=== PATIENT | female | born 1980 | race American Indian/Alaskan Native ===

== ENCOUNTER 2016-12-01 07:43 | Emergency (ER) | payer OTHER ==
[2016-12-01] MEDS ORDERED: Sodium Chloride 0.9% 1,000 ML IV ONE (08:07)
[2016-12-01 08:22] LABS: RBC URINE 37 /hpf (0-3); URINE BILIRUBIN NEGATIVE (NEGATIVE); URINE BLOOD 3+ (NEGATIVE); URINE COLOR Yellow (YELLOW); URINE GLUCOSE (UA) NORMAL (Normal); URINE KETONE NEGATIVE (NEGATIVE); URINE LEUKOCYTE ESTERASE NEG Leu/uL (Negative); URINE PROTEIN NEGATIVE (NEGATIVE); URINE UROBILINOGEN NORMAL mg/dL (0.2-1.0); WBC URINE 3 /hpf (0-5)
[2016-12-01] MEDS ORDERED: Sodium Chloride 0.9% 1,000 ML ONE (08:23)
[2016-12-01 08:25] LABS: BASO # 0.1 K/uL (0.0-0.2); BASO % 0.9 % (0.0-2.0); EOS # 0.2 K/uL (0.0-0.7); EOS % 1.3 % (0.0-4.0); HEMATOCRIT 37.6 % (34.0-47.0); LYMPH # 3.2 K/uL (1.0-4.3); LYMPH % 23.8 % (20.0-40.0); MEAN CELL VOLUME 91.2 fL (81.0-99.0); MEAN CORPUSCULAR HEMOGLOBIN 30.1 pg (27.0-31.0); MEAN CORPUSCULAR HGB CONC 33.1 g/dL (33.0-37.0); MEAN PLATELET VOLUME 6.7 fL (7.2-11.7); MONO # 1.1 K/uL (0.0-0.8); MONO % 8.3 % (0.0-10.0); NRBC % 0.1 % (0.0-2.0); RED CELL DISTRIBUTION WIDTH 14.4 % (11.5-14.5); WHITE BLOOD COUNT 13.5 K/uL (4.8-10.8)
[2016-12-01 08:34] LABS: CHLORIDE 104 mmol/L (98-107)
[2016-12-01 08:35] LABS: POTASSIUM 3.9 mmol/L (3.6-5.2); SODIUM 140 mmol/L (132-148)
--- NOTE | 2016-12-01 08:35 | C.PDOC ---
History Of Present Illness 35 y/o female presents to the ED c/o intermittent epigastric abdominal pain for 6 days. She notes that a couple of days ago it felt like heart burn so she took OTC medication with no relief. Patient denies nausea, vomiting, diarrhea, urinary symptoms, chest pain, shortness of breath, or fever. Time Seen by Provider: 12/01/16 08:02 Chief Complaint (Nursing): Abdominal Pain History Per: Patient History/Exam Limitations: no limitations Onset/Duration Of Symptoms: Days (6), Intermittent Episodes, Persistent Current Symptoms Are (Timing): Still Present Location Of Pain/Discomfort: Epigastric Radiation Of Pain To:: None Quality Of Discomfort: Dull Recent travel outside of the [place]: No Past Medical History Reviewed: Historical Data, Nursing Documentation, Vital Signs Vital Signs: Last Vital Signs Temp 97.8 F 12/01/16 09:57 Pulse 88 12/01/16 09:57 Resp 16 12/01/16 09:57 BP 122/80 12/01/16 09:57 Pulse Ox 98 12/01/16 09:57 - Medical History PMH: Arthritis Surgical History: No Surg Hx Family History: States: Unknown Family Hx - Social History Hx Tobacco Use: Yes (heavy smoker) Hx Alcohol Use: Yes (social) Hx Substance Use: Yes (marijuana) - Immunization History Hx Tetanus Toxoid Vaccination: No Hx Influenza Vaccination: No Hx Pneumococcal Vaccination: No Review Of Systems Constitutional: Negative for: Fever Cardiovascular: Negative for: Chest Pain Respiratory: Negative for: Shortness of Breath Gastrointestinal: Positive for: Abdominal Pain (epigastric). Negative for: Nausea, Vomiting, Diarrhea Genitourinary: Negative for: Dysuria, Hematuria Physical Exam - Physical Exam Appears: Non-toxic, No Acute Distress Skin: Normal Color, Warm, Dry Head: Atraumatic, Normacephalic Eye(s): bilateral: Normal Inspection Neck: Normal ROM Chest: Symmetrical Cardiovascular: Rhythm Regular Respiratory: Normal Breath Sounds, No Rales, No Rhonchi, No Wheezing Gastrointestinal/Abdominal: Soft, Tenderness (mild epigastric), No Guarding, No Rebound, No Other (Negative Quiles sign, Negative McBurney point tenderness) Back: Normal Inspection, No CVA Tenderness Extremity: Normal ROM, No Swelling Neurological/Psych: Oriented x3, Normal Speech, Normal Cognition ED Course And Treatment - Laboratory Results Result Diagrams: 12/01/16 08:22 12/01/16 08:22 O2 Sat by Pulse Oximetry: 100 (ra) Pulse Ox Interpretation: Normal Medical Decision Making Medical Decision Making: Impression: intermittent epigastric abdominal pain for 6 days. Differential diagnosis includes but not limited to: GERD Plan: * Blood Work * Urinalysis, Urine HCG * Pepcid IVP, IV Fluid On further evaluation patient still complaining of pain. Treated with Toradol IVP. On reevaluation, patient reports improvement of abdominal pain. Patient is resting comfortably, abdomen remains soft, and patient is tolerating PO. Patient feels comfortable going home. Patient discharged home and instructed to follow up with physician/clinic in 2-5 days for further evaluation or return to ED if symptoms persist or worsen. Disposition Counseled Patient/Family Regarding: Diagnosis, Need For Followup, Rx Given - Disposition Disposition: HOME/ ROUTINE Disposition Time: 09:48 Condition: IMPROVED Additional Instructions: Your labs were normal Your prescription sent to [facility] Follow up with your primary medical doctor or clinic in 2-5 days for further evaluation. Return to the emergency department at any time if symptoms persist or worsen. Prescriptions: Omeprazole 20 mg PO DAILY #20 capsule. Instructions: Gastritis (DC) - POA Present On Arrival: None - Clinical Impression Clinical Impression: Epigastric abdominal pain - PA / ZONE MANAGER / Resident Statement MD/DO has reviewed & agrees with the documentation as recorded. - Scribe Statement The provider has reviewed the documentation as recorded by the Scribe (Tamie Aguayo) All medical record entries made by the Scribe were at my direction and personally dictated by me. I have reviewed the chart and agree that the record accurately reflects my personal performance of the history, physical exam, medical decision making, and the department course for this patient. I have also personally directed, reviewed, and agree with the discharge instructions and disposition.
[2016-12-01 08:37] LABS: ALB/GLOB RATIO 1.4 (1.0-2.1); ALKALINE PHOSPHATASE 65 U/L (38-126); ALT/SGPT 27 U/L (9-52); AST/SGOT 38 U/L (14-36); BILIRUBIN,TOTAL 0.2 mg/dL (0.2-1.3); BLOOD UREA NITROGEN 14 mg/dL (7-17); CARBON DIOXIDE 23 mmol/L (22-30); GFR AFRICAN-AMERICAN > 60; GLUCOSE,RANDOM 78 mg/dL (65-105); TOTAL PROTEIN 7.3 g/dL (6.3-8.3)
[2016-12-01 08:38] LABS: CALCIUM 9.5 mg/dl (8.6-10.4)
[2016-12-01 09:57] VITALS: BP 122/80; PULSE 88; RESP 16; TEMP 97.8
[2016-12-01 10:59] VITALS: O2SAT 100
== END 2016-12-01 09:57 | disposition home or self-care (01) ==
LOC: C.ER 07:43
DX: R10.13 Epigastric pain (principal)
CPT/HCPCS: 80053; 81001; 83690; 84703; 85025; 96361; 96374; 96375; 99284; J1885; J7040

== ENCOUNTER 2016-12-03 19:02 | Emergency (ER) | payer OTHER ==
[2016-12-03 19:14] VITALS: BMI 23.9
[2016-12-03] MEDS ORDERED: DiphenhydrAMINE 50 mg/ml Inj ONE (19:31)
[2016-12-03] MEDS ORDERED: DiphenhydrAMINE 50 mg/ml Inj IVP STA (19:35)
--- NOTE | 2016-12-03 20:40 | C.PDOC ---
History Of Present Illness 35 year old patient presents to the ED complaining of diffuse hives prior to arrival. There are no known allergens. Patient denies shortness of breath, lip swelling, tongue swelling, wheezing, throat closing sensation, or chest tightness. Time Seen by Provider: 12/03/16 19:19 Chief Complaint (Nursing): Abnormal Skin Integrity History Per: Patient History/Exam Limitations: no limitations Onset/Duration Of Symptoms: Mins (prior to arrival) Current Symptoms Are (Timing): Still Present Quality Of Symptoms: Painful, Itching Severity: Mild Pain Scale Rating Of: 3 Recent travel outside of the [place]: No Past Medical History Reviewed: Historical Data, Nursing Documentation, Vital Signs Vital Signs: Last Vital Signs Temp 98.2 F 12/03/16 21:32 Pulse 87 12/03/16 21:32 Resp 20 12/03/16 21:32 BP 100/65 12/03/16 21:32 Pulse Ox 99 12/03/16 21:32 - Medical History PMH: Arthritis, Gastritis Family History: States: Unknown Family Hx - Social History Hx Tobacco Use: Yes (heavy smoker) Hx Alcohol Use: Yes (social) Hx Substance Use: Yes (marijuana) - Immunization History Hx Tetanus Toxoid Vaccination: No Hx Influenza Vaccination: Yes Hx Pneumococcal Vaccination: No Review Of Systems Except As Marked, All Systems Reviewed And Found Negative. ENT: Negative for: Throat Swelling, Other (lip swelling) Respiratory: Negative for: Shortness of Breath, Wheezing, Other (chest tightness ) Skin: Positive for: Other (diffuse hives) Physical Exam - Physical Exam Appears: Non-toxic, No Acute Distress Skin: Warm, Dry, Other (diffuse urticaria) Head: Atraumatic, Normacephalic Eye(s): bilateral: PERRL, EOMI Ear(s): Bilateral: Normal Nose: Normal Oral Mucosa: Moist Tongue: Normal Appearing, No Swelling Lips: Normal Appearing, No Swelling Throat: Normal Neck: Normal ROM, Supple Chest: Symmetrical Cardiovascular: Rhythm Regular Respiratory: Normal Breath Sounds, No Rales, No Rhonchi, No Wheezing Neurological/Psych: Oriented x3, Normal Speech ED Course And Treatment O2 Sat by Pulse Oximetry: 98 (RA) Pulse Ox Interpretation: Normal Progress Note: Plan: -Benadryl, Pepcid, Toradol, Solu-Medrol. -Reassess and disposition. Patient c/o of pain, toradol IV ordered. Patient is resting comfortably, tolerating PO, VSS, has no shortness of breath, has no intra-oral swelling, no stridor. Patient notes that pruritus has some improved. Patient was advised to avoid potential allergens, and to follow up with physician in 1- 2 days. Reevaluation Time: 21:20 Reassessment Condition: Improved Disposition Counseled Patient/Family Regarding: Diagnosis, Need For Followup, Rx Given - Disposition Referrals: Kristina Bassett MD [Primary Care Provider] - Disposition: HOME/ ROUTINE Disposition Time: 21:21 Condition: GOOD Additional Instructions: Please follow up with PMD Take meds as directed Return to ER if worse Prescriptions: DiphenhydrAMINE [Benadryl] 25 mg PO QID #20 cap Famotidine [Pepcid] 20 mg PO DAILY #7 tab Ondansetron [Zofran Odt] 4 mg PO TID #7 odt Cetirizine HCl [Zyrtec] 10 mg PO DAILY #20 capsule predniSONE [Prednisone] 40 mg PO DAILY #10 tab Instructions: Urticaria (ED) Forms: Work Excuse - Clinical Impression Clinical Impression: Urticaria - PA / CARDIAC CATHETERIZATION TECHNOLOGIST / Resident Statement MD/DO has reviewed & agrees with the documentation as recorded. - Scribe Statement The provider has reviewed the documentation as recorded by the Scribe Lorna Garcia All medical record entries made by the Scribe were at my direction and personally dictated by me. I have reviewed the chart and agree that the record accurately reflects my personal performance of the history, physical exam, medical decision making, and the department course for this patient. I have also personally directed, reviewed, and agree with the discharge instructions and disposition.
[2016-12-03 21:33] VITALS: BP 100/65; PULSE 87; RESP 20; TEMP 98.2
[2016-12-04 04:54] VITALS: O2SAT 98
== END 2016-12-03 21:33 | disposition home or self-care (01) ==
LOC: SUPCPDRO 19:02 → C.ER 19:02
DX: L50.9 Urticaria, unspecified (principal)
CPT/HCPCS: 96374; 96375; 99284; J1200; J1885; J2930

== ENCOUNTER 2016-12-04 12:12 | Emergency (ER) | payer OTHER ==
[2016-12-04 12:12] VITALS: BMI 23.9
[2016-12-04 13:10] VITALS: BP 104/68; PULSE 87; RESP 17; TEMP 98.6; O2SAT 100
--- NOTE | 2016-12-04 14:00 | C.PDOC ---
Time Seen by Provider: 12/04/16 13:12 Chief Complaint (Nursing): Allergic Reaction History Per: Patient Onset/Duration Of Symptoms: Days (2), Waxing/Waning Current Symptoms Are (Timing): Still Present Possible Cause: Unknown Associated Symptoms: Skin Rash, Itching Severity: Moderate Additional History Per: Prior Records Past Medical History Reviewed: Historical Data, Nursing Documentation, Vital Signs Vital Signs: Last Vital Signs Temp 98.6 F 12/04/16 13:08 Pulse 87 12/04/16 13:08 Resp 17 12/04/16 13:08 BP 104/68 12/04/16 13:08 Pulse Ox 100 12/04/16 13:08 - Medical History PMH: Arthritis, Gastritis Family History: States: Unknown Family Hx - Social History Hx Tobacco Use: Yes (heavy smoker) Hx Alcohol Use: Yes (social) Hx Substance Use: Yes (marijuana) - Immunization History Hx Tetanus Toxoid Vaccination: No Hx Influenza Vaccination: Yes Hx Pneumococcal Vaccination: No Review Of Systems Except As Marked, All Systems Reviewed And Found Negative. Constitutional: Negative for: Fever, Weakness ENT: Negative for: Mouth Pain, Mouth Swelling, Throat Pain, Throat Swelling Respiratory: Negative for: Shortness of Breath Gastrointestinal: Negative for: Vomiting, Abdominal Pain Musculoskeletal: Negative for: Neck Pain Skin: Positive for: Rash Neurological: Negative for: Weakness, Numbness, Seizures, Altered Mental Status Physical Exam - Physical Exam Appears: Non-toxic, No Acute Distress Skin: Warm, Dry, Rash (Urticaria on body and forehead) Head: Atraumatic, Normacephalic Eye(s): bilateral: Normal Inspection, PERRL, EOMI Oral Mucosa: Moist, No Drooling, No Trismus Throat: Normal Neck: Normal ROM, Supple Cardiovascular: Rhythm Regular Respiratory: Normal Breath Sounds, No Accessory Muscle Use, No Stridor, No Wheezing Gastrointestinal/Abdominal: Soft, No Tenderness Extremity: Normal ROM, No Pedal Edema Neurological/Psych: Oriented x3, Normal Speech, Normal Motor, Normal Sensation ED Course And Treatment O2 Sat by Pulse Oximetry: 100 Pulse Ox Interpretation: Normal Progress Note: After I ordered the medications, pt became irrate and started yelling and having argument with other patients and walked out of the ER. Disposition - Disposition Disposition: ELOPEMENT - ER ONLY Disposition Time: 14:00 Condition: FAIR - Clinical Impression Clinical Impression: Allergic urticaria, Patient left before treatment completed
[2016-12-04] MEDS ORDERED: DiphenhydrAMINE 50 mg/ml Inj ONE (15:54)
[2016-12-04] MEDS ORDERED: MethylPREDNISolone 40 mg Vial ONE (15:55)
== END 2016-12-04 14:00 | disposition left against medical advice (07) ==
LOC: C.ER 12:12
DX: L50.0 Allergic urticaria (principal)

== ENCOUNTER 2016-12-04 14:26 | Emergency (ER) | payer OTHER ==
[2016-12-04 14:26] VITALS: BMI 23.9
[2016-12-04 14:53] VITALS: RESP 20; TEMP 98.2; O2SAT 100
[2016-12-04] MEDS ORDERED: DiphenhydrAMINE 50 mg/ml Inj IM STA (15:47)
[2016-12-04] MEDS ORDERED: MethylPREDNISolone 40 mg Vial IM STA (15:47)
--- NOTE | 2016-12-04 15:47 | C.PDOC ---
History Of Present Illness Patient is a 35 year old female who presents to the ER with a complaint of an allergic reaction for the past 3 days. Patient was treated yesterday for the same complaint and has not been able to get presciption for medication so she came to the ER for treatment. Denies any chest pain, shortness of breath, or throat itching. Time Seen by Provider: 12/04/16 15:16 Chief Complaint (Nursing): Allergic Reaction History Per: Patient History/Exam Limitations: no limitations Onset/Duration Of Symptoms: Days (3) Current Symptoms Are (Timing): Still Present Past Medical History Reviewed: Historical Data, Nursing Documentation, Vital Signs Vital Signs: Last Vital Signs Temp 98.2 F 12/04/16 14:48 Pulse 75 12/04/16 16:52 Resp 20 12/04/16 16:52 BP 128/75 12/04/16 16:52 Pulse Ox 100 12/04/16 16:52 - Medical History PMH: Arthritis, Gastritis Surgical History: No Surg Hx Family History: States: Unknown Family Hx - Social History Hx Tobacco Use: Yes (heavy smoker) Hx Alcohol Use: Yes (social) Hx Substance Use: Yes (marijuana) - Immunization History Hx Tetanus Toxoid Vaccination: No Hx Influenza Vaccination: Yes Hx Pneumococcal Vaccination: No Review Of Systems Except As Marked, All Systems Reviewed And Found Negative. ENT: Negative for: Other (Throat itching) Cardiovascular: Negative for: Chest Pain Respiratory: Negative for: Shortness of Breath Physical Exam - Physical Exam Appears: Well, Non-toxic Skin: Normal Color, Warm, Dry Head: Atraumatic, Normacephalic Eye(s): right: Other (Mild periorbital swelling.), left: Normal Inspection Oral Mucosa: Moist Tongue: Normal Appearing, No Swelling Lips: Normal Appearing, No Swelling Throat: No Erythema, No Exudate, Other Neck: Normal ROM Chest: Symmetrical, No Tenderness Cardiovascular: Rhythm Regular, No Friction Rub, No Murmur Respiratory: Normal Breath Sounds, No Rales, No Rhonchi, No Stridor, No Wheezing Gastrointestinal/Abdominal: Soft, No Tenderness Neurological/Psych: Oriented x3, Normal Speech, Normal Cognition, Normal Motor Gait: Steady ED Course And Treatment O2 Sat by Pulse Oximetry: 100 (Room air) Pulse Ox Interpretation: Normal Progress Note: Benadryl IM and prednisolone IM administered. Disposition - Disposition Referrals: Abiel Sepulveda MD [Medical Doctor] - Disposition: HOME/ ROUTINE Disposition Time: 16:40 Condition: GOOD Additional Instructions: Follow up with the medical doctor within 1-2 days. Return if worsened. Prescriptions: DiphenhydrAMINE [Benadryl] 25 mg PO Q4H PRN #30 cap PRN Reason: Itching / Pruritus Famotidine [Pepcid] 20 mg PO BID #20 tab Ondansetron ODT [Zofran ODT] 1 odt PO BID PRN #10 odt PRN Reason: Nausea/Vomiting predniSONE [Prednisone] 20 mg PO BID #10 tab Instructions: Urticaria (ED) Forms: Work Excuse - Clinical Impression Clinical Impression: Allergic urticaria - Scribe Statement The provider has reviewed the documentation as recorded by the Scribtree Alvarez All medical record entries made by the Harlanibtree were at my direction and personally dictated by me. I have reviewed the chart and agree that the record accurately reflects my personal performance of the history, physical exam, medical decision making, and the department course for this patient. I have also personally directed, reviewed, and agree with the discharge instructions and disposition.
[2016-12-04 16:53] VITALS: BP 128/75; PULSE 75
== END 2016-12-04 16:52 | disposition home or self-care (01) ==
LOC: C.ER 14:26
DX: L50.0 Allergic urticaria (principal)
CPT/HCPCS: 96372; 99284; J1200; J2920

== ENCOUNTER 2016-12-12 16:08 | Emergency (ER) | payer OTHER ==
[2016-12-12 16:12] VITALS: BMI 32.8
[2016-12-12] MEDS ORDERED: Sodium Chloride 0.9% 1,000 ML IV ONE (16:46)
[2016-12-12] MEDS ORDERED: Sodium Chloride 0.9% 1,000 ML ONE (16:55)
[2016-12-12 17:17] LABS: ADD MANUAL DIFF? NO
[2016-12-12 17:17] LABS: RBC URINE 11 /hpf (0-3); URINE BACTERIA FEW (<OCC); URINE BILIRUBIN NEGATIVE (NEGATIVE); URINE BLOOD 2+ (NEGATIVE); URINE COLOR Yellow (YELLOW); URINE GLUCOSE (UA) NORMAL (Normal); URINE KETONE NEGATIVE (NEGATIVE); URINE LEUKOCYTE ESTERASE 1+ Leu/uL (Negative); URINE PROTEIN NEGATIVE (NEGATIVE); URINE UROBILINOGEN NORMAL mg/dL (0.2-1.0); WBC URINE 9 /hpf (0-5)
[2016-12-12 17:41] LABS: ALB/GLOB RATIO 1.2 (1.0-2.1); ALKALINE PHOSPHATASE 72 U/L (38-126); ALT/SGPT 45 U/L (9-52); AST/SGOT 33 U/L (14-36); BILIRUBIN,TOTAL 0.2 mg/dL (0.2-1.3); BLOOD UREA NITROGEN 10 mg/dL (7-17); CALCIUM 9.8 mg/dl (8.6-10.4); CARBON DIOXIDE 21 mmol/L (22-30); CHLORIDE 102 mmol/L (98-107); GFR AFRICAN-AMERICAN > 60; GLUCOSE,RANDOM 97 mg/dL (65-105); POTASSIUM 4.1 mmol/L (3.6-5.2); SODIUM 139 mmol/L (132-148); TOTAL PROTEIN 7.9 g/dL (6.3-8.3)
[2016-12-12 17:50] LABS: BASO % 0.3 % (0.0-2.0); EOS % 0.2 % (0.0-4.0); LYMPH # 1.4 K/uL (1.0-4.3); LYMPH % 9.2 % (20.0-40.0); MEAN CELL VOLUME 90.4 fL (81.0-99.0); MEAN CORPUSCULAR HEMOGLOBIN 29.3 pg (27.0-31.0); MEAN CORPUSCULAR HGB CONC 32.4 g/dL (33.0-37.0); MEAN PLATELET VOLUME 6.6 fL (7.2-11.7); MONO # 0.4 K/uL (0.0-0.8); MONO % 2.6 % (0.0-10.0); PLATELET COUNT 523 K/uL (130-400); WHITE BLOOD COUNT 14.8 K/uL (4.8-10.8)
[2016-12-12 18:08] VITALS: BP 146/78; PULSE 86; RESP 18; TEMP 98.6; O2SAT 98
--- NOTE | 2016-12-12 18:23 | C.PDOC ---
History Of Present Illness 35 y/o female presents to the ED complaining of vaginal bleeding x 3 weeks. She denies dizziness, chest pain, shortness of breath, nausea, vomiting, or fever. States she did not follow up with RPG PROGRAMMER ANALYST for this problem. Patient denies taking oral contraception. Chief Complaint (Nursing): Female Genitourinary History Per: Patient History/Exam Limitations: no limitations Onset/Duration Of Symptoms: Days (21), Persistent Current Symptoms Are (Timing): Still Present Recent travel outside of the [place]: No Past Medical History Reviewed: Historical Data, Nursing Documentation, Vital Signs Vital Signs: Last Vital Signs Temp 98.6 F 12/12/16 18:07 Pulse 86 12/12/16 18:07 Resp 18 12/12/16 18:07 BP 146/78 12/12/16 18:07 Pulse Ox 98 12/12/16 18:26 - Medical History PMH: Arthritis, Gastritis Surgical History: No Surg Hx Family History: States: Unknown Family Hx - Social History Hx Tobacco Use: Yes (heavy smoker) Hx Alcohol Use: Yes (social) Hx Substance Use: Yes (marijuana) - Immunization History Hx Tetanus Toxoid Vaccination: No Hx Influenza Vaccination: Yes Hx Pneumococcal Vaccination: No Review Of Systems Except As Marked, All Systems Reviewed And Found Negative. Constitutional: Negative for: Fever Cardiovascular: Negative for: Chest Pain Respiratory: Negative for: Shortness of Breath Gastrointestinal: Negative for: Nausea, Vomiting Genitourinary: Positive for: Vaginal Bleeding Neurological: Negative for: Dizziness Physical Exam - Physical Exam Appears: Non-toxic, No Acute Distress Skin: Normal Color, Warm, Dry Head: Atraumatic, Normacephalic Neck: Normal ROM Chest: Symmetrical Cardiovascular: Rhythm Regular Respiratory: Normal Breath Sounds, No Rales, No Rhonchi, No Wheezing Gastrointestinal/Abdominal: Normal Exam, Soft, No Tenderness Back: Normal Inspection, No CVA Tenderness Pelvic: Other (deferred) Extremity: Normal ROM, No Swelling Neurological/Psych: Oriented x3, Normal Speech, Normal Cognition ED Course And Treatment - Laboratory Results Result Diagrams: 12/12/16 17:16 12/12/16 17:41 O2 Sat by Pulse Oximetry: 98 (ra) Pulse Ox Interpretation: Normal Progress Note: Plan: Blood Work, Urinalysis, Urine HCG, Ultrasound, Pepcid IVP, Zofran IVP, IV Fluids. Medical Decision Making Medical Decision Making: Patient refusing to wait for ultrasound. States she wants to leave the hospital against medical advice. Risks were discussed with the patient who expresses understanding. Patient now refusing to sign AMA paperwork but still stating that she is going to leave the hospital against medical advice. Disposition - Disposition Referrals: [facility] [Outside] [facility] [Outside] Disposition: AGAINST MEDICAL ADVICE Disposition Time: 18:10 Condition: UNKNOWN Additional Instructions: You were treated for vaginal bleeding. The emergency medical care you received today was directed at your acute symptoms. If you were prescribed any medication , please fill it and take as directed. It may take several days for your symptoms to resolve. Return to the Emergency Department if your symptoms worsen , do not improve, or if you have any other problems. Please contact your doctor or call one of the physicians/clinics you have been referred to that are listed on the Patient Visit Information form that is included in your discharge packet. Bring any paperwork you were given at discharge with you along with any medications you are taking to your follow up visit. Our treatment cannot replace ongoing medical care by a primary care provider (PCP) outside of the emergency department. Thank you for allowing the [facility] team to be part of your care today. Follow up with your RPG PROGRAMMER ANALYST doctor or the clinic this week for outpatient care. - Clinical Impression Clinical Impression: Vaginal bleeding - Scribe Statement The provider has reviewed the documentation as recorded by the Scribe (Tamie Aguayo) Provider Attestation: All medical record entries made by the Scribe were at my direction and personally dictated by me. I have reviewed the chart and agree that the record accurately reflects my personal performance of the history, physical exam, medical decision making, and the department course for this patient. I have also personally directed, reviewed, and agree with the discharge instructions and disposition.
[2016-12-12 19:38] LABS: REACTIVE LYMPHOCYTES 1 % (0-0); TOTAL CELLS COUNTED 100
[2016-12-12 19:39] LABS: NEUTROPHIL 82 % (50-75)
== END 2016-12-12 18:09 | disposition left against medical advice (07) ==
LOC: C.ER 16:08
DX: N93.9 Abnormal uterine and vaginal bleeding, unspecified (principal)
CPT/HCPCS: 80053; 81001; 83690; 84703; 85025; 96361; 96374; 96375; 99284; J2405; J7040

== ENCOUNTER 2017-04-13 08:57 | Emergency (ER) | payer OTHER ==
[2017-04-13 09:09] VITALS: BMI 18.3
[2017-04-13 09:10] VITALS: BP 111/73; PULSE 92; RESP 20; TEMP 98.3; O2SAT 99
[2017-04-13 09:44] LABS: RBC URINE 28 /hpf (0-3); URINE BILIRUBIN NEGATIVE (NEGATIVE); URINE BLOOD 1+ (NEGATIVE); URINE COLOR Yellow (YELLOW); URINE GLUCOSE (UA) NORMAL (Normal); URINE KETONE TRACE mg/dL (NEGATIVE); URINE LEUKOCYTE ESTERASE NEG Leu/uL (Negative); URINE PROTEIN NEGATIVE (NEGATIVE); WBC URINE 1 /hpf (0-5)
--- NOTE | 2017-04-13 12:26 | C.PDOC ---
History Of Present Illness 36 yr old female presents to the ER stating she feels her "vagina shifted" after having rough intercourse last night. Patient denies nausea, vomiting, dysuria, hematuria, vaginal bleeding or discharge. Time Seen by Provider: 04/13/17 09:21 Chief Complaint (Nursing): Female Genitourinary History Per: Patient History/Exam Limitations: no limitations Onset/Duration Of Symptoms: Days Past Medical History Reviewed: Historical Data, Nursing Documentation, Vital Signs Vital Signs: Last Vital Signs Temp 98.3 F 04/13/17 09:09 Pulse 92 H 04/13/17 09:09 Resp 20 04/13/17 09:09 BP 111/73 04/13/17 09:09 Pulse Ox 99 04/13/17 12:27 - Medical History PMH: Arthritis, Gastritis Family History: States: No Known Family Hx - Social History Hx Tobacco Use: Yes (heavy smoker) Hx Alcohol Use: Yes (social) Hx Substance Use: Yes (marijuana) - Immunization History Hx Tetanus Toxoid Vaccination: No Hx Influenza Vaccination: Yes Hx Pneumococcal Vaccination: No Review Of Systems Except As Marked, All Systems Reviewed And Found Negative. Gastrointestinal: Negative for: Nausea, Vomiting Genitourinary: Negative for: Dysuria, Hematuria, Vaginal Discharge, Vaginal Bleeding Physical Exam - Physical Exam Appears: Non-toxic, No Acute Distress Skin: Warm, Dry, No Rash Head: Atraumatic, Normacephalic Oral Mucosa: Moist Chest: Symmetrical, No Tenderness Cardiovascular: Rhythm Regular, No Murmur Respiratory: Normal Breath Sounds, No Stridor, No Wheezing Pelvic: Normal External Exam, No Tender Uterus Extremity: Normal ROM, No Swelling Neurological/Psych: Oriented x3, Normal Speech, Normal Motor ED Course And Treatment O2 Sat by Pulse Oximetry: 99 (RA ) Pulse Ox Interpretation: Normal Medical Decision Making Medical Decision Making: PLAN: * POC * Urinalysis Disposition - Disposition Referrals: [facility] [Outside] Disposition: HOME/ ROUTINE Disposition Time: 09:45 Condition: GOOD Additional Instructions: Thank you for letting us take care of you today. Your provider was Dr. Pike. You were treated for back/vaginal discomfort. The emergency medical care you received today was directed at your acute symptoms. If you were prescribed any medication, please fill it and take as directed. It may take several days for your symptoms to resolve. Return to the Emergency Department if your symptoms worsen, do not improve, or if you have any other problems. Please contact your doctor or call one of the physicians/clinics you have been referred to that are listed on the Patient Visit Information form that is included in your discharge packet. Bring any paperwork you were given at discharge with you along with any medications you are taking to your follow up visit. Our treatment cannot replace ongoing medical care by a primary care provider (PCP) outside of the emergency department. Thank you for allowing the [facility] team to be part of your care today. Follow up with your doctor if you have any concerns. Prescriptions: Ibuprofen [Motrin] 600 mg PO Q6 PRN #20 tab PRN Reason: Pain, Moderate (4-7) Instructions: Acute Low Back Pain (ED) Print Language: HEBREW - Clinical Impression Clinical Impression: Low back pain - Scribe Statement The provider has reviewed the documentation as recorded by the Harlanibtree Berg Provider Attestation: All medical record entries made by the Harlanibtree were at my direction and personally dictated by me. I have reviewed the chart and agree that the record accurately reflects my personal performance of the history, physical exam, medical decision making, and the department course for this patient. I have also personally directed, reviewed, and agree with the discharge instructions and disposition.
== END 2017-04-13 10:01 | disposition home or self-care (01) ==
LOC: C.ER 08:57
DX: M54.5 Low back pain (principal)

== ENCOUNTER → 2017-06-09 11:30 | Emergency (ER) | payer OTHER ==
[2017-06-09 11:30] VITALS: BMI 18.3
== END | disposition left against medical advice (07) ==
LOC: C.ER 11:30
DX: Z02.89 Encounter for other administrative examinations (principal); R07.81 Pleurodynia

== ENCOUNTER 2017-06-10 09:23 | Emergency (ER) | payer OTHER ==
[2017-06-10 09:23] VITALS: BMI 18.3
[2017-06-10 10:38] LABS: EOS # 0.1 K/uL (0.0-0.7); LYMPH # 1.8 K/uL (1.0-4.3); MEAN PLATELET VOLUME 7.3 fL (7.2-11.7); MONO # 0.5 K/uL (0.0-0.8); RED CELL DISTRIBUTION WIDTH 13.3 % (11.5-14.5)
[2017-06-10 10:41] LABS: CHLORIDE 101 mmol/L (98-107); POTASSIUM 4.3 mmol/L (3.6-5.2); SODIUM 134 mmol/L (132-148)
[2017-06-10 10:43] LABS: BASO % 0.5 % (0.0-2.0); EOS % 1.8 % (0.0-4.0); GFR AFRICAN-AMERICAN > 60; MEAN CORPUSCULAR HEMOGLOBIN 29.7 pg (27.0-31.0); MEAN CORPUSCULAR HGB CONC 33.4 g/dL (33.0-37.0); MONO % 7.2 % (0.0-10.0)
[2017-06-10 10:44] LABS: ALB/GLOB RATIO 1.7 (1.0-2.1); ALKALINE PHOSPHATASE 55 U/L (38-126); ALT/SGPT 32 U/L (9-52); AST/SGOT 24 U/L (14-36); BILIRUBIN,TOTAL 0.6 mg/dL (0.2-1.3); BLOOD UREA NITROGEN 11 mg/dL (7-17); CARBON DIOXIDE 24 mmol/L (22-30); GLUCOSE,RANDOM 83 mg/dL (65-105); TOTAL PROTEIN 6.8 g/dL (6.3-8.3)
[2017-06-10 10:45] LABS: CALCIUM 9.6 mg/dl (8.6-10.4); WHITE BLOOD COUNT 7.2 K/uL (4.8-10.8)
--- NOTE | 2017-06-10 10:50 | C.PDOC ---
History Of Present Illness 36 year old female presents to the ED with complaints of left-sided rib pain which began 4 days ago. Patient states her symptoms are worse with movement. Patient also reports her LMP was 10/10 but she began experiencing vaginal bleeding yesterday, and states the bleeding is heavier than her usual menstrual period. Patient denies fever, dizziness, difficulty with breathing, vomiting, dysuria, increased urinary frequency, or recent trauma/injuries. Time Seen by Provider: 06/10/17 09:51 Chief Complaint (Nursing): Female Genitourinary History Per: Patient History/Exam Limitations: no limitations Onset/Duration Of Symptoms: Days (4) Current Symptoms Are (Timing): Still Present Quality Of Discomfort: "Pain" Associated Symptoms: denies: Fever, Chills, Vomiting, Urinary Symptoms Additional History Per: Patient Abnormal Vaginal Bleeding: Yes Last Menstral Period: 05/29/2017 Past Medical History Reviewed: Historical Data, Nursing Documentation, Vital Signs Vital Signs: Last Vital Signs Temp 98.0 F 06/10/17 11:51 Pulse 69 06/10/17 11:51 Resp 14 06/10/17 11:51 BP 104/72 06/10/17 11:51 Pulse Ox 99 06/10/17 14:27 - Medical History PMH: Arthritis, Gastritis Surgical History: No Surg Hx Family History: States: Unknown Family Hx - Social History Hx Tobacco Use: Yes (heavy smoker) Hx Alcohol Use: Yes (social) Hx Substance Use: Yes (marijuana) - Immunization History Hx Tetanus Toxoid Vaccination: No Hx Influenza Vaccination: No Hx Pneumococcal Vaccination: No Review Of Systems Constitutional: Negative for: Fever, Chills Gastrointestinal: Negative for: Vomiting Genitourinary: Positive for: Vaginal Bleeding. Negative for: Dysuria, Frequency Musculoskeletal: Positive for: Other (left-sided rib pain ) Physical Exam - Physical Exam Appears: Well, Non-toxic, No Acute Distress Skin: Normal Color, Warm, Dry Head: Atraumatic, Normacephalic Eye(s): bilateral: Normal Inspection, EOMI Nose: Normal Oral Mucosa: Moist Neck: Normal ROM, Supple Chest: Symmetrical, No Deformity, Tenderness (to left lateral chest wall on palpation ), No Ecchymosis Cardiovascular: Rhythm Regular, No Murmur Respiratory: Normal Breath Sounds, No Rales, No Rhonchi, No Wheezing Gastrointestinal/Abdominal: Soft, No Tenderness, No Guarding, No Rebound Back: No Vertebral Tenderness, No Paraspinal Tenderness Extremity: Normal ROM, Capillary Refill (less than 2 seconds ) Neurological/Psych: Oriented x3, Normal Speech, Normal Cognition Gait: Steady ED Course And Treatment - Laboratory Results Result Diagrams: 06/10/17 10:25 06/10/17 10:25 O2 Sat by Pulse Oximetry: 99 (RA) Pulse Ox Interpretation: Normal - Other Rad chest and left ribs X-Ray: Interpreted by Me, Viewed By Me, Read By Radiologist Interpretation: PROCEDURE: Radiographs of the Chest and Left Ribs. HISTORY: pain. COMPARISON: Comparison made with chest radiograph 06/04/2015. TECHNIQUE : Frontal radiograph of the chest and multiple oblique radiographs of the left ribs were obtained. FINDINGS: LEFT RIBS: No fracture or focal lesion visualized. LUNGS: Clear. PLEURA: No pneumothorax or pleural fluid. CARDIOVASCULAR: Normal sized heart. No pulmonary vascular congestion. OTHER FINDINGS: None. IMPRESSION: Unremarkable radiographs of the chest and left ribs. No left rib fracture. If symptoms persist or occult fracture suspected clinically consider followup CT scan chest. Progress Note: EKG, chest and rib XR, and labs were ordered. Patient was given Toradol. PERC rule negative. On reassessment, patient is resting comfortably, showing no signs of distress and reports an improvement in her symptoms. Patient is stable for discharge and is advised to follow up with her PMD within 1-2 days for further evalaution and/or return to the ED if symptoms return or worsen. Disposition - Disposition Disposition: HOME/ ROUTINE Disposition Time: 11:22 Condition: STABLE Additional Instructions: Follow up with your primary medical doctor or clinic in 2-5 days for further evaluation. Take medications as prescribed. Return to the emergency department at any time if symptoms persist or worsen. 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 - Scribe Statement The provider has reviewed the documentation as recorded by the Harlanibe Rosa Garcia All medical record entries made by the Scribe were at my direction and personally dictated by me. I have reviewed the chart and agree that the record accurately reflects my personal performance of the history, physical exam, medical decision making, and the department course for this patient. I have also personally directed, reviewed, and agree with the discharge instructions and disposition.
[2017-06-10 10:53] LABS: RBC URINE 145 /hpf (0-3); URINE BILIRUBIN NEGATIVE (NEGATIVE); URINE BLOOD 3+ (NEGATIVE); URINE COLOR Yellow (YELLOW); URINE GLUCOSE (UA) NORMAL (Normal); URINE KETONE NEGATIVE (NEGATIVE); URINE LEUKOCYTE ESTERASE TRACE Leu/uL (Negative); URINE PROTEIN 1+ mg/dL (NEGATIVE); WBC URINE 7 /hpf (0-5)
[2017-06-10 11:51] VITALS: BP 104/72; PULSE 69; RESP 14; TEMP 98
--- NOTE | 2017-06-10 13:11 | RAD ---
PROCEDURE: Radiographs of the Chest and Left Ribs. HISTORY: pain COMPARISON: Comparison made with chest radiograph 06/04/2015. TECHNIQUE: Frontal radiograph of the chest and multiple oblique radiographs of the left ribs were obtained. FINDINGS: LEFT RIBS: No fracture or focal lesion visualized. LUNGS: Clear. PLEURA: No pneumothorax or pleural fluid. CARDIOVASCULAR: Normal sized heart. No pulmonary vascular congestion. OTHER FINDINGS: None. IMPRESSION: Unremarkable radiographs of the chest and left ribs. No left rib fracture. If symptoms persist or occult fracture suspected clinically consider followup CT scan chest.
[2017-06-10 14:11] VITALS: O2SAT 99
== END 2017-06-10 12:10 | disposition home or self-care (01) ==
LOC: C.ER 09:23
DX: R07.89 Other chest pain (principal); N93.8 Other specified abnormal uterine and vaginal bleeding
CPT/HCPCS: 71101; 80053; 81001; 84703; 85025; 96374; 99285; J1885

== ENCOUNTER 2017-11-16 07:44 | Emergency (ER) | payer MEDICAID, OTHER ==
[2017-11-16 07:47] VITALS: BMI 18.3
[2017-11-16 07:54] VITALS: BP 105/71; PULSE 83; RESP 18; TEMP 97.3; O2SAT 98
[2017-11-16] MEDS ORDERED: DiphenhydrAMINE 12.5 mg/5 ml LIQ UD (5 ml) PO STA (08:29)
--- NOTE | 2017-11-16 09:15 | C.PDOC ---
History Of Present Illness 36 y/o female presents to the ER complaining of rash to the lower extremities. Patient states that she ate seafood at a restaurant and developed sudden onset of rash to the lower extremities. Patient reports that she has associated SOB. Time Seen by Provider: 11/16/17 08:04 Chief Complaint (Nursing): Allergic Reaction History Per: Patient History/Exam Limitations: no limitations Onset/Duration Of Symptoms: Days Current Symptoms Are (Timing): Still Present Past Medical History Reviewed: Historical Data, Nursing Documentation, Vital Signs Vital Signs: Last Vital Signs Temp 97.3 F L 11/16/17 07:53 Pulse 83 11/16/17 07:53 Resp 18 11/16/17 07:53 BP 105/71 11/16/17 07:53 Pulse Ox 98 11/16/17 09:20 - Medical History PMH: Arthritis, Gastritis Surgical History: No Surg Hx Family History: States: No Known Family Hx - Social History Hx Tobacco Use: Yes (heavy smoker) Hx Alcohol Use: No (social) Hx Substance Use: No - Immunization History Hx Tetanus Toxoid Vaccination: No Hx Influenza Vaccination: No Hx Pneumococcal Vaccination: No Review Of Systems Except As Marked, All Systems Reviewed And Found Negative. Constitutional: Negative for: Fever, Chills Respiratory: Positive for: Shortness of Breath Skin: Positive for: Rash Physical Exam - Physical Exam Appears: Non-toxic, No Acute Distress Skin: Warm, Rash (papular rash to bilateral upper and lower extremities) Head: Atraumatic, Normacephalic Eye(s): bilateral: Normal Inspection Nose: Normal Oral Mucosa: Moist Tongue: Normal Appearing, No Swelling Lips: Normal Appearing, No Swelling Throat: Normal, No Erythema, No Exudate Neck: Normal ROM, Supple Chest: Symmetrical Cardiovascular: Rhythm Regular, No Friction Rub, No Murmur Respiratory: Normal Breath Sounds, No Rales, No Rhonchi, No Wheezing Extremity: Normal ROM, No Tenderness, No Swelling Neurological/Psych: Oriented x3, Normal Speech, Normal Motor Gait: Steady ED Course And Treatment O2 Sat by Pulse Oximetry: 98 (RA) Pulse Ox Interpretation: Normal Medical Decision Making Medical Decision Making: Plan: --Prednisone PO --Benadryl PO Disposition - Disposition Referrals: Abiel Sepulveda MD [Medical Doctor] - Disposition: HOME/ ROUTINE Disposition Time: 08:30 Condition: GOOD Additional Instructions: Follow up with the medical doctor within 1-2 days. Return if worsened. 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 - Scribe Statement The provider has reviewed the documentation as recorded by the Marisol Strickland Provider Attestation All medical record entries made by the Marisol were at my direction and personally dictated by me. I have reviewed the chart and agree that the record accurately reflects my personal performance of the history, physical exam, medical decision making, and the department course for this patient. I have also personally directed, reviewed, and agree with the discharge instructions and disposition.
== END 2017-11-16 09:33 | disposition home or self-care (01) ==
LOC: C.ER 07:44
DX: L50.9 Urticaria, unspecified (principal)

== ENCOUNTER 2018-08-27 09:59 | Emergency (ER) | payer MEDICAID ==
[2018-08-27 09:59] VITALS: BMI 18.3
[2018-08-27 10:17] VITALS: TEMP 98.3
--- NOTE | 2018-08-27 11:15 | C.PDOC ---
History Of Present Illness 37 y/o female presents to the ED for evaluation of anxiety. States she got a call from work this morning which made her feel anxious. She then developed panic attack. Patient denies any SOB, nausea, vomiting, or pain. States she feels somewhat better now after smoking. No other medical complaints. Time Seen by Provider: 08/27/18 11:03 Chief Complaint (Nursing): Anxiety History Per: Patient History/Exam Limitations: no limitations Onset/Duration Of Symptoms: Mins Current Symptoms Are (Timing): Gone Modifying Factor(s): None Past Medical History Reviewed: Historical Data, Nursing Documentation, Vital Signs Vital Signs: Last Vital Signs Temp 98.3 F 08/27/18 10:11 Pulse 81 08/27/18 10:11 Resp 0 L 08/27/18 10:11 BP 100/54 L 08/27/18 10:11 Pulse Ox 98 08/27/18 10:11 - Medical History PMH: Arthritis, Gastritis Family History: States: Unknown Family Hx - Social History Hx Tobacco Use: Yes (heavy smoker) Hx Alcohol Use: Yes (social) Hx Substance Use: No - Immunization History Hx Tetanus Toxoid Vaccination: No Hx Influenza Vaccination: No Hx Pneumococcal Vaccination: No Review Of Systems Constitutional: Negative for: Fever Gastrointestinal: Negative for: Nausea, Vomiting Neurological: Negative for: Weakness Psych: Positive for: Anxiety Physical Exam - Physical Exam Appears: Non-toxic, No Acute Distress Skin: Normal Color, Warm, Dry Head: Atraumatic, Normacephalic Eye(s): bilateral: Normal Inspection Neck: Normal ROM Chest: Symmetrical Cardiovascular: Rhythm Regular, No Murmur Respiratory: Normal Breath Sounds, No Accessory Muscle Use, Other (No respiratory distress) Gastrointestinal/Abdominal: Soft, No Tenderness, No Distention Extremity: Bilateral: Atraumatic, Normal Color And Temperature Neurological/Psych: Oriented x3, Normal Speech Gait: Steady ED Course And Treatment O2 Sat by Pulse Oximetry: 98 (RA) Pulse Ox Interpretation: Normal Medical Decision Making Medical Decision Making: Impression: Panic attack Patient medicated with 0.25 mg PO xanax. On reevaluation, patient reports improvement and feels comfortable going home. Patient is stable for discharge home. Disposition Counseled Patient/Family Regarding: Diagnosis, Need For Followup - Disposition Referrals: Abiel Sepulveda MD [Medical Doctor] - Disposition: HOME/ ROUTINE Disposition Time: 11:14 Condition: STABLE Additional Instructions: follow up with your doctor within 2 days call to make an appointment take medications as prescribed return to ER if symptoms worsens or progress Instructions: Panic Disorder Forms: General Discharge Instructions, [facility] (German), Work Excuse - Clinical Impression Clinical Impression: Panic attack - Scribe Statement The provider has reviewed the documentation as recorded by the Marisol Schmidt Provider Attestation: All medical record entries made by the Marisol were at my direction and personally dictated by me. I have reviewed the chart and agree that the record accurately reflects my personal performance of the history, physical exam, medical decision making, and the department course for this patient. I have also personally directed, reviewed, and agree with the discharge instructions and disposition.
[2018-08-27 11:23] VITALS: BP 102/65; PULSE 70; RESP 16
[2018-08-27 11:26] VITALS: O2SAT 98
== END 2018-08-27 11:22 | disposition home or self-care (01) ==
LOC: C.ER 09:59
DX: F41.0 Panic disorder [episodic paroxysmal anxiety] (principal); F17.200 Nicotine dependence, unspecified, uncomplicated